=== PATIENT | male | born 1945 | race Caucasian/White ===

== ENCOUNTER → 2017-08-27 | Day surgery (SDC) | payer MEDICARE, BC ==
[~2017-08-27] MED LIST: ADULT LOW DOSE81 MG PO; ALDACTONE25 MG PO; ASPIR 8181 MG; CALCIUM 600 +1 EAC1 PO; CARVEDILOL6.25 MG; CHONDROITIN SU250 MG PO; CIPRO500 MG PO; COREG; COREG6.25 MG PO; FLEXERIL PO; GLUCOSAMINE HC500 MG PO; HYDROCODONE-AP1 EAC6; HYDROCODONE-AP1 EAC6 PO; HYDROCODONE-APA1 TA1 PO; KLOR-CON M2020 MEQ PO; LASIX; LASIX 40 MG TAB40 M2 PO; MEN'S MULTI-VI1 EACH PO; MOBIC15 MG PO; NAPROSYN500 MG; PLAVIX 75 MG TA75 M1 PO; POTASSIUM; SIMVASTATIN40 MG PO; ZOFRAN ODT4 MG PO
[2017-08-27 12:10] LABS: HEMATOCRIT 46.2 % (42.0-52.0); MCH 30.9 pg (26.0-34.0); MCHC 34.6 g/dL (28.0-37.0); MCV 89.1 fL (80.0-100.0); MPV 9.2 fl. (7.2-11.1); RBC 5.18 mil/uL (4.50-6.00); RDW-CV 13.1 % (10.5-14.5)
--- NOTE | 2017-08-27 12:11 | EKG ---
[place] [address] ELECTROCARDIOGRAM REPORT Name: TATE OHARA Room: [facility]#: [id number] Admission: 08/27/17 Attend Phys: Eveline Shirley DO Discharge: Date of : 49 Report #: [id number] THIS REPORT FOR: //name// [facility] Test Date: 2017-08-27 Test Time: 11:19:55 Pat Name: TATE OHARA Department: Room: Gender: Ultrasound Applications Specialist: : 1945 Requested By: Eveline Shirley Order Number: [id number] Reinier MD: Paul Yu Measurements Intervals [place] Rate: 66 P: 52 CA: 165 QRS: -51 QRSD: 102 T: 117 QT: 424 QTc: 445 Interpretive Statements Sinus rhythm 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
[2017-08-27 12:17] LABS: CALCIUM 8.5 mg/dL (8.5-10.1); POTASSIUM 3.9 mmol/L (3.5-5.1)
[2017-08-27 12:22] LABS: ALBUMIN 3.6 g/dL (3.4-5.0); TOTAL BILIRUBIN 0.9 mg/dL (<0.1-1.0)
--- NOTE | 2017-08-28 14:10 | OP ---
[address] [address] OPERATIVE REPORT Name: TATE OHARA Room: [facility]#: [id number] Admission: 08/27/17 Attend Phys: Eveline Shirley DO Discharge: Date of : 49 Report #: [id number] THIS REPORT FOR: //name// CC: Eveline Blanca DATE OF SERVICE: 08/27/2017 PREPROCEDURE DIAGNOSIS: Large incarcerated umbilical hernia. POSTPROCEDURE DIAGNOSIS: Large incarcerated umbilical hernia. FINDINGS: A 3 x 3 cm hernia defect with a large hernia sac containing several loops of bowel. SURGEON: Eveline Shirley DO. COSURGEON: Carlito Santos DO. GARDE MANAGER: Russell Brown MS3. PROCEDURE PERFORMED: Umbilical hernia repair with mesh. ANESTHESIA: LMA and local. ESTIMATED BLOOD LOSS: 5 mL. DRAINS: None. SPECIMEN: Sac. COMPLICATIONS: None. CONDITION: Stable. DISPOSITION: PACU to home. HISTORY OF PRESENT ILLNESS: The patient is a very pleasant 72-year-old gentleman who has been following with me for several years for a very large hernia. Up until this point, he had declined having surgery, but the defect was getting larger and causing more pain. He was then consented for a repair of the hernia. Risks discussed included bleeding, infection, pain, scar formation, injury to bowel, recurrence of the hernia, need for mesh, mesh complications and risks of general anesthesia. The patient understood these risks and elected to proceed. [address] [address] OPERATIVE REPORT Name: TATE OHARA Room: [facility].#: [id number] Admission: 08/27/17 Attend Phys: Eveline Shirley DO Discharge: Date of : 49 Report #: [id number] DESCRIPTION OF PROCEDURE: The patient was brought to the operating room. He was laid supine on the operating room table. SCDs were placed on bilateral lower extremities. Clindamycin was given in the perioperative period. General LMA anesthesia was induced by Anesthesia without difficulty. Abdomen was prepped and draped in standard sterile fashion. Timeout was performed to verify the patient and procedure. A 10 mL of 0.5% Marcaine were injected in the infraumbilical area. Incision was made with #15 blade. Cautery was used for hemostasis. Hernia sac was directly encountered underneath the skin. It was gently retracted and then dissected free from the surrounding tissue using a combination of blunt and cautery dissection. It was released from the undersurface of the umbilicus using very careful dissection with Metzenbaums. I could clearly see that there were several loops of bowel within the hernia defect and these were protected from any damage. Once the hernia sac was completely dissected free from the surrounding tissue, it was excised from the hernia defect and sent for specimen. Hernia defect was measured. It was 3 x 3 cm. Finger was gently swept into the abdomen to assure that there were no stoney-incisional adhesions, none were identified. A large Ventralex ST [place] mesh was brought into the field and easily deployed within the defect. It was sutured into place using 2 running stitches of 0 Prolene with excellent approximation of the mesh to the anterior abdominal wall. Care was taken to avoid pinching any intra-abdominal structures between the mesh and the anterior abdominal wall. Wound was irrigated. Hemostasis was assured. The defect itself was then closed over the mesh using 2 interrupted rokhni-ki-kodmz stitches of 0 Prolene with excellent approximation of the fascial edges. An additional 10 mL of 0.5% Marcaine were injected in the fascia. Umbilical stump was then reapproximated to the underlying fascia using 3 interrupted stitches of 3-0 Vicryl. The wound itself was closed in a layered fashion using deep and superficial stitches of 3-0 Vicryl in inverted interrupted fashion. Skin was closed with a running 4-0 Monocryl. A total of 50 mL of 0.5% Marcaine were used to anesthetize the wound. Wound was then cleansed and covered with Mastisol, Steri-Strips, 4 x 4's, and a Tegaderm. The patient was then allowed to awaken from anesthesia, was extubated and transported to the recovery room with no further difficulties. Binder was placed in the operating room. <ELECTRONICALLY SIGNED> By: Eveline Shirley DO 08/28/17 1410 1651 1706Ckenny Shirley DO /nt
--- NOTE | 2017-08-29 14:03 | S ---
[place] [address] SURGICAL PATH RPT PROCEDURE Name: AHMET HUSTON Room: [facility]#: [id number] Admission: 08/27/17 Date of : 49 Discharge: Report #: [id number] Path Case #: [id number] PATHOLOGY REPORT COLLECTION DATE: 08/27/2017 RECEIVED DATE: 08/27/2017 SUBMITTING PHYS: Dr. Eveline Shirley OTHER PHYS: Dr. Phoenix Blanca SPECIMEN(S) RECEIVED: A.Umbilical hernia sac * * * * * * * * * * * * FINAL DIAGNOSIS: Umbilical hernia sac: - Benign mesothelial-lined fibromembranous / fibrofatty tissue with fibrosis and mild chronic inflammation. (GRACIELA:mml; 08/29/2017) PATHOLOGIST: Waqar Cotton M.D. REPORT ELECTRONICALLY SIGNED BY: Waqar Cotton M.D. DATE/TIME: 08/29/2017 14:02 * * * * * * * * * * * * GROSS PATHOLOGY: Received in formalin labeled "Ahmet Huston, umbilical hernia sac," is a piece of fibromembranous tissue with attached fibroadipose tissue measuring 5.1 x 2.9 x 2.9 cm. No nodules or lesions are identified. Psych Nurse tissue is submitted in cassette A1. (TSD; 08/27/2017) CLINICAL HISTORY: None provided INITIAL CPT CODE(S): A; 20609 Professional services performed by [facility] at [facility], [address] [place] [address]. Technical services performed by [facility] at [address] [place] [address], [address], [place] [address]. [facility] [id number] [place] [address] SURGICAL PATH RPT PROCEDURE Name: AHMET HUSTON Room: [facility] [place]#: [id number] Admission: 08/27/17 Date of : 49 Discharge: Report #: [id number] Path Case #: [id number] PHONE: [phone] DIRECTOR: Juan C Smith M.D. * * * END OF REPORT * * *
== END | disposition home or self-care (01) ==
LOC: M.SUR 08:45
PROVIDERS: Surgery
DX: K42.0 Umbilical hernia with obstruction, without gangrene (principal); J44.9 Chronic obstructive pulmonary disease, unspecified; I25.10 Atherosclerotic heart disease of native coronary artery without angina pectoris; Z88.0 Allergy status to penicillin; Z79.82 Long term (current) use of aspirin; Z79.899 Other long term (current) drug therapy; Z79.891 Long term (current) use of opiate analgesic

== ENCOUNTER → 2018-09-30 | Day surgery (SDC) | payer MEDICARE, BC ==
[~2018-09-30] MED LIST changes: -CARVEDILOL6.25 MG; +CITRUS CALCIUM1 EAC1 PO; +MULTIPLE VITAM1 EAC2 PO; +ULTRAM 50MG TAB50 MG PO
[2018-09-30 11:47] LABS: HEMATOCRIT 45.8 % (42.0-52.0); HEMOGLOBIN 15.9 gm/dL (14.0-18.0); MCH 30.6 pg (26.0-34.0); MCHC 34.7 g/dL (28.0-37.0); MCV 88.1 fL (80.0-100.0); RBC 5.2 mil/uL (4.50-6.00); RDW-CV 12.8 % (10.5-14.5)
[2018-09-30 12:00] VITALS: BP 116/70
[2018-09-30 12:01] LABS: ALBUMIN 3.7 g/dL (3.4-5.0); CALCIUM 9.1 mg/dL (8.5-10.1); POTASSIUM 4.3 mmol/L (3.5-5.1); TOTAL BILIRUBIN 0.6 mg/dL (<0.1-1.0); TOTAL PROTEIN 7.4 g/dL (6.4-8.2)
[2018-09-30 15:56] VITALS: BP 116/70
--- NOTE | 2018-10-01 10:37 | OP ---
[address] [address] OPERATIVE REPORT Name: TATE OHARA Room: [facility]#: [id number] Admission: 09/30/18 Attend Phys: Eveline Shirley DO Discharge: Date of : 49 Report #: [id number] THIS REPORT FOR: //name// CC: Eveline Blanca DATE OF SERVICE: 09/30/2018 PREOPERATIVE DIAGNOSIS: Recurrent umbilical hernia. POSTOPERATIVE DIAGNOSIS: Recurrent umbilical hernia. FINDINGS: An old mesh, which was intact to the umbilicus with 2 new small defects, 1 at 6 o'clock and one at 8 o'clock. Both were small fat containing reducible hernias. SURGEON: Eveline Shirley DO. COSURGEON: Abel Santos, PGY2. RN LABOR AND DELIVERY: Davonte Rivera MS3. PROCEDURE: Repair of recurrent umbilical hernia with mesh. ANESTHESIA: General endotracheal and local. ESTIMATED BLOOD LOSS: 20. DRAINS: None. SPECIMENS: None. COMPLICATIONS: None. CONDITION: Stable. DISPOSITION: PACU. HISTORY OF PRESENT ILLNESS: The patient is a very pleasant 73-year-old gentleman who is known to me from a previous repair of recurrent umbilical hernia with mesh. He noticed several months ago that he was having a new bulge around the 8 o'clock position and then presented to my office. On physical exam, he did have a small defect on the inferior lateral aspect of his old repair. It was reducible. He was then consented for repair of this area with possible new mesh. Risks discussed included bleeding, infection, pain, scar formation, recurrence, complications of the mesh and risks of general [address] [address] OPERATIVE REPORT Name: TATE OHARA Room: [facility].#: [id number] Admission: 09/30/18 Attend Phys: Eveline Shirley DO Discharge: Date of : 49 Report #: [id number] anesthesia. The patient understood these risks and elected to proceed. DESCRIPTION OF PROCEDURE: The patient was brought to the operating room. He was laid supine on the operating room table. SCDs were placed on bilateral lower extremities. Ancef was given in the perioperative period. General endotracheal anesthesia was induced by anesthesia without difficulty. Abdomen was prepped and draped in standard sterile fashion. Timeout was performed to verify the patient and procedure. A 10 mL of 0.5% Marcaine were injected in the infraumbilical area. Incision was made with #15 blade. Cautery was used for hemostasis. Cautery was then used to dissect down to the umbilical stump. His previous stitches were then identified. These appeared to be Prolene. These were gently elevated and removed using suture scissors. The umbilical stump was then removed from the fascia, and the site of her old repair was then easily visualized. Additional Prolene stitches were removed. This then opened the old hernia defect. Mesh was then encountered. It appeared to be intact. It was circumferentially sutured in. The mesh was then removed from the fascia using careful dissection of cautery and heavy curved Mayos. Once the mesh was completely removed, it was handed off. A defect was then identified on the inferior lateral aspect around 8 o'clock. An additional small defect was identified at 6 o'clock. These areas did have a bridge of fascia between them. It is my thought that this might be a stitch pulled through from her previous mesh repair. The bridges of fascia were opened until we had one large hernia defect. Any hernia sac was completely removed from the fascial edges. There were few thin wispy adhesions of omentum to the area, which were also taken down using a combination of cautery and Metzenbaum dissection. A large Ventralex [place] mesh was then brought onto the field and easily introduced within the defect. The mesh was then sutured into place using multiple interrupted stitches of 0 Prolene in a thzjgz-ju-bckzs fashion with excellent approximation of the mesh to the anterior abdominal wall. Care was taken to avoid any intra-abdominal contents while we were suturing the mesh in place. The defect itself was then closed using multiple interrupted stitches of 0 Prolene in a gwpmzf-bk-nfndr fashion with excellent approximation of the defect. An additional 20 mL of 0.5% Marcaine were injected in the fascia. Wound was then closed in a layered fashion using deep and superficial stitches of 3-0 Vicryl in inverted interrupted fashion. Skin wound was closed with a running 4-0 Monocryl. A total of 30 mL of 0.5% Marcaine were used to anesthetize the wound. Wound was then cleansed and covered with Mastisol, Steri-Strips, 4 x 4's and a Tegaderm. The patient was then allowed to awake from anesthesia, was extubated and transported to the recovery room with no further difficulties. Counts were correct x 2 at the conclusion of the case. Binder was placed in the operating room. <ELECTRONICALLY SIGNED> By: Eveline Shirley DO 10/01/18 1037 1439 1634Ckenny Shirley, DO /nt
== END | disposition home or self-care (01) ==
LOC: M.SUR 09-23 06:45 → M.TBA 14:46 → M.SUR 14:46
PROVIDERS: Surgery
DX: K42.9 Umbilical hernia without obstruction or gangrene (principal); I10 Essential (primary) hypertension; Z88.0 Allergy status to penicillin; Z79.899 Other long term (current) drug therapy; Z91.012 Allergy to eggs; Z79.82 Long term (current) use of aspirin; Z98.890 Other specified postprocedural states; M19.90 Unspecified osteoarthritis, unspecified site; Z79.891 Long term (current) use of opiate analgesic; Z82.49 Family history of ischemic heart disease and other diseases of the circulatory system; Z90.49 Acquired absence of other specified parts of digestive tract